=== PATIENT | female | born 1960 | race Caucasian/White ===

== ENCOUNTER 2017-09-06 13:42 | Emergency (ER) | payer BC ==
[~2017-09-06] VITALS: Ht 167.6 cm; Wt 68.2 kg
[~2017-09-06 13:42] MED LIST: ASMANEX TW0.22 MG/A1 IH; AVELOX400 MG PO; CLARITIN10 MG PO; FLUOXETINE; PRILOSEC 20MG20 MG PO; SINGULAIR10 MG PO
[2017-09-06 13:43] VITALS: TEMP 97.8
[2017-09-06 14:14] LABS: HEMATOCRIT 45.2 % (37.0-47.0); HEMOGLOBIN 15.5 g/dl (12.5-16.0); MEAN CELL VOLUME 85 fl (80.0-100.0); MEAN CORPUSCULAR HEMOGLOBIN 29 pg (27.0-31.0); MEAN CORPUSCULAR HGB CONC 34 g/dl (33.0-37.0); MEAN PLATELET VOLUME 8.6 fl (7.4-10.4); PLATELET COUNT 307 K/mm3 (130-400); RED BLOOD COUNT 5.34 M/mm3 (4.10-5.30); WHITE BLOOD COUNT 14.5 K/mm3 (4.8-10.8)
[2017-09-06 14:16] LABS: ADD PATHOLOGY DIFF REVIEW NO
[2017-09-06 14:26] LABS: ALBUMIN 4.7 gm/dL (3.5-5.0); BILIRUBIN,TOTAL 0.6 mg/dL (0.0-1.0); C-REACTIVE PROTEIN 0.6 mg/dL (0.0-0.9); CALCIUM 9.6 mg/dL (8.4-10.2); CREATININE, serum 0.57 mg/dL (0.52-1.25); POTASSIUM 3.7 mmol/L (3.4-5.0); TOTAL PROTEIN 7.6 gm/dL (6.4-8.2)
[2017-09-06 14:29] LABS: BAND 8 % (0-10); LYMPHOCYTE 3 % (20.0-51.0); NEUTROPHILS 87 % (42.0-75.2); PLATELET ESTIMATE NORMAL (NORMAL); TOTAL CELLS COUNTED 100
[2017-09-06] MEDS ORDERED: ZOFRAN 4MG T4 MG/TAB PO (14:54)
[2017-09-06 16:40] VITALS: BP 134/85; PULSE 89
== END 2017-09-06 16:48 | disposition home or self-care (01) ==
LOC: COL.ER 13:42
PROVIDERS: Emergency Medicine
DX: K52.9 Noninfective gastroenteritis and colitis, unspecified (principal)
CPT/HCPCS: J2405; J2550; J7030

== ENCOUNTER 2018-09-15 18:42 | Emergency (ER) | payer BC ==
[~2018-09-15] VITALS: Ht 167.6 cm; Wt 70.5 kg
[~2018-09-15 18:42] MED LIST changes: +ZOFRAN 4MG T4 MG/TAB PO
[2018-09-15 18:51] VITALS: BP 148/83; TEMP 98.4
[2018-09-15] MEDS ORDERED: SYNTHROID0.112 MG/T PO (19:14)
[2018-09-15] MEDS ORDERED: QVAR REDIHALE10.6 G1 IH (19:15)
[2018-09-15] MEDS ORDERED: SARAFEM20 M1 PO (19:15)
[2018-09-15] MEDS ORDERED: LIPITOR20 MG PO (19:15)
[2018-09-15] MEDS ORDERED: SINGULAIR 110 MG/TAB PO (19:15)
[2018-09-15 21:00] VITALS: PULSE 69
== END 2018-09-15 21:00 | disposition home or self-care (01) ==
LOC: COL.ER 18:42
DX: S80.02XA Contusion of left knee, initial encounter (principal); J45.909 Unspecified asthma, uncomplicated; F32.9 Major depressive disorder, single episode, unspecified; K21.9 Gastro-esophageal reflux disease without esophagitis; W11.XXXA Fall on and from ladder, initial encounter; Y92.009 Unspecified place in unspecified non-institutional (private) residence as the place of occurrence of the external cause
CPT/HCPCS: J1885; L1846

== ENCOUNTER → 2018-11-13 | Outpatient (CLI) | payer BC ==
[~2018-11-13] MED LIST changes: +LIPITOR20 MG PO; +QVAR REDIHALE10.6 G1 IH; +SARAFEM20 M1 PO; +SINGULAIR 110 MG/TAB PO; +SYNTHROID0.112 MG/T PO
== END ==
LOC: MC.RAD 13:39
DX: Z12.31 Encounter for screening mammogram for malignant neoplasm of breast (principal)

== ENCOUNTER 2020-03-18 13:18 | Outpatient (RCR) | payer OTHER | END 2020-06-16 | disposition home or self-care (01) | LOC: WSOH | DX: Z77.21 Contact with and (suspected) exposure to potentially hazardous body fluids (principal); W46.0XXA Contact with hypodermic needle, initial encounter; Y99.0 Civilian activity done for income or pay ==

== ENCOUNTER → 2021-11-15 | Outpatient (CLI) | payer OTHER | LOC: MC.RAD 14:28 | DX: Z12.31 Encounter for screening mammogram for malignant neoplasm of breast (principal) ==

== ENCOUNTER 2023-06-12 15:45 | Outpatient (RCR) | payer OTHER | END 2023-06-14 | disposition home or self-care (01) | LOC: MKS.ESL.PT | DX: S43.081D Other subluxation of right shoulder joint, subsequent encounter (principal); S46.011D Strain of muscle(s) and tendon(s) of the rotator cuff of right shoulder, subsequent encounter; X58.XXXD Exposure to other specified factors, subsequent encounter; Z98.890 Other specified postprocedural states ==

== ENCOUNTER 2023-07-06 14:00 | Outpatient (RCR) | payer OTHER | END 2023-07-14 | disposition home or self-care (01) | LOC: MKS.ESL.PT | DX: S43.081D Other subluxation of right shoulder joint, subsequent encounter (principal); S46.011D Strain of muscle(s) and tendon(s) of the rotator cuff of right shoulder, subsequent encounter; Z98.890 Other specified postprocedural states ==

== ENCOUNTER → 2023-12-03 08:31 | Outpatient (RCR) | payer OTHER | LOC: MKS.ESL.PT 09-14 13:00 | DX: S43.081D Other subluxation of right shoulder joint, subsequent encounter (principal); S46.011D Strain of muscle(s) and tendon(s) of the rotator cuff of right shoulder, subsequent encounter; X58.XXXD Exposure to other specified factors, subsequent encounter ==